=== PATIENT | female | born 1965 | race Caucasian/White ===

== ENCOUNTER 2019-01-07 12:21 | Emergency (ER) | payer MEDICARE, MEDICAID ==
[~2019-01-07] VITALS: Ht 149.9 cm; Wt 86.4 kg
[~2019-01-07 12:21] MED LIST: AMLO2.5T2 PO; BAC10T PO; DULO-31 PO; GABA-532 PO; GABA600T13 PO; IBUP-1984 PO; LISI-222 PO; TEG100T PO
[2019-01-07 13:10] VITALS: BP 155/84
--- NOTE | 2019-01-07 13:11 | NUR ---
DISCUSSED PLAN OF CARE WITH DR MARTÍNEZ: ZACHARIAH PATIENT MEETS SIRS CRITERIA: PATIENT BEING TREATED FOR UTI: SEEN AT [facility] A FEW DAYS AGO
[2019-01-07] MEDS ORDERED: acetaminophen 325mg tablet PO ONE (13:15)
--- NOTE | 2019-01-07 13:16 | NUR ---
MOTHER [phone] FRANCESCO
--- NOTE | 2019-01-07 13:17 | NUR ---
PHONED MOTHER AND LET HER KNOW THAT HER DAUGHTER IS HERE THE MOTHER ASKED WHY SHE IS NOT AT [facility]; I TOLD HER THAT I DONT KNOW WHY EMS BROUGHT HER HERE
--- NOTE | 2019-01-07 13:41 | NUR ---
BG [phone]
== END 2019-01-07 15:03 | disposition home or self-care (01) ==
LOC: ER 12:22
DX: M25.561 Pain in right knee (principal); M25.562 Pain in left knee; M25.551 Pain in right hip; M25.552 Pain in left hip; I10 Essential (primary) hypertension; Z88.8 Allergy status to other drugs, medicaments and biological substances; Z79.899 Other long term (current) drug therapy; W05.0XXA Fall from non-moving wheelchair, initial encounter; Y93.89 Activity, other specified; Y92.89 Other specified places as the place of occurrence of the external cause; Y99.8 Other external cause status
CPT/HCPCS: 73502; 73564; 82948; 99284

== ENCOUNTER 2019-03-10 11:22 | Day surgery (SDC) | payer MEDICARE, MEDICAID ==
[~2019-03-10] VITALS: Ht 124.5 cm; Wt 86.4 kg
[2019-03-10 11:45] VITALS: BP 134/75
[2019-03-10] MEDS ORDERED: MIDAZolam 5mg/5ml vial ONE (12:52)
[2019-03-10] MEDS ORDERED: fentaNYL/PF 50MCG/1 ML 2ML syringe ONE (12:52)
[2019-03-10 14:05] VITALS: BP 132/75
[2019-03-10 14:15] VITALS: BP 136/87
[2019-03-10 14:25] VITALS: BP 138/75
[2019-03-10 14:35] VITALS: BP 140/73
== END 2019-03-10 15:00 | disposition home or self-care (01) ==
LOC: GI LAB 11:22
PROVIDERS: ATTEND Internal Medicine Gastroenterology
DX: K63.5 Polyp of colon (principal); K64.8 Other hemorrhoids; E66.9 Obesity, unspecified
CPT/HCPCS: 44389; G0500; J2250; J3010; J7030; 44388; 50555; 88305; 99152; A4620

== ENCOUNTER 2020-07-07 09:30 | Day surgery (SDC) | payer MEDICARE, MEDICAID ==
[~2020-07-07 09:30] MED LIST changes: -AMLO2.5T2 PO; -LISI-222 PO
== END 2020-07-07 11:58 | disposition home or self-care (01) ==
LOC: WOUND CARE 09:30
PROVIDERS: ATTEND Nurse Practitioner
DX: S31.40XA Unspecified open wound of vagina and vulva, initial encounter (principal); L98.492 Non-pressure chronic ulcer of skin of other sites with fat layer exposed; K64.8 Other hemorrhoids; I10 Essential (primary) hypertension; E66.9 Obesity, unspecified; Z68.38 Body mass index [BMI] 38.0-38.9, adult; Z79.899 Other long term (current) drug therapy; W05.0XXA Fall from non-moving wheelchair, initial encounter; Y93.89 Activity, other specified; Y92.89 Other specified places as the place of occurrence of the external cause; Y99.8 Other external cause status
CPT/HCPCS: 97597

== ENCOUNTER 2020-08-31 12:15 | Outpatient (CLI) | payer MEDICARE, MEDICAID ==
[2020-08-31] MEDS ORDERED: LIDOcaine 2% 5ml jelly ONE (13:38)
== END 2020-08-31 23:59 | disposition home or self-care (01) ==
LOC: WOUND CARE 12:15 → EDSTATUS 13:00 → WOUND CARE 23:59
PROVIDERS: ATTEND Nurse Practitioner
DX: S31.40XD Unspecified open wound of vagina and vulva, subsequent encounter (principal); L98.492 Non-pressure chronic ulcer of skin of other sites with fat layer exposed; K64.8 Other hemorrhoids; I10 Essential (primary) hypertension; K21.9 Gastro-esophageal reflux disease without esophagitis; E66.9 Obesity, unspecified; R41.3 Other amnesia; H93.19 Tinnitus, unspecified ear; F41.9 Anxiety disorder, unspecified; F32.9 Major depressive disorder, single episode, unspecified; Z68.38 Body mass index [BMI] 38.0-38.9, adult; Z79.899 Other long term (current) drug therapy; W05.0XXD Fall from non-moving wheelchair, subsequent encounter
CPT/HCPCS: G0463

== ENCOUNTER 2020-09-13 12:53 | Outpatient (CLI) | payer MEDICARE, MEDICAID | END 2020-09-13 23:59 | disposition home or self-care (01) | LOC: WOUND CARE 12:53 | PROVIDERS: ATTEND Nurse Practitioner Family | DX: S31.40XD Unspecified open wound of vagina and vulva, subsequent encounter (principal); L98.492 Non-pressure chronic ulcer of skin of other sites with fat layer exposed; K64.8 Other hemorrhoids; I10 Essential (primary) hypertension; K21.9 Gastro-esophageal reflux disease without esophagitis; E66.9 Obesity, unspecified; Z68.38 Body mass index [BMI] 38.0-38.9, adult; Z79.899 Other long term (current) drug therapy; W05.0XXD Fall from non-moving wheelchair, subsequent encounter | CPT/HCPCS: G0463 ==

== ENCOUNTER 2020-09-20 12:33 | Outpatient (CLI) | payer MEDICARE, MEDICAID | END 2020-09-20 23:59 | disposition home or self-care (01) | LOC: WOUND CARE 12:33 | PROVIDERS: ATTEND Nurse Practitioner Family | DX: S31.40XD Unspecified open wound of vagina and vulva, subsequent encounter (principal); L98.492 Non-pressure chronic ulcer of skin of other sites with fat layer exposed; K64.8 Other hemorrhoids; I10 Essential (primary) hypertension; K21.9 Gastro-esophageal reflux disease without esophagitis; E66.9 Obesity, unspecified; Z68.38 Body mass index [BMI] 38.0-38.9, adult; Z79.899 Other long term (current) drug therapy; W05.0XXD Fall from non-moving wheelchair, subsequent encounter | CPT/HCPCS: 97597 ==

== ENCOUNTER 2020-10-13 13:05 | Outpatient (CLI) | payer MEDICARE, MEDICAID | END 2020-10-13 23:59 | disposition home or self-care (01) | LOC: WOUND CARE 13:05 | PROVIDERS: ATTEND Nurse Practitioner | DX: S31.40XD Unspecified open wound of vagina and vulva, subsequent encounter (principal); L98.492 Non-pressure chronic ulcer of skin of other sites with fat layer exposed; K64.8 Other hemorrhoids; I10 Essential (primary) hypertension; K21.9 Gastro-esophageal reflux disease without esophagitis; E66.9 Obesity, unspecified; F41.9 Anxiety disorder, unspecified; F32.9 Major depressive disorder, single episode, unspecified; Z68.38 Body mass index [BMI] 38.0-38.9, adult; Z79.899 Other long term (current) drug therapy; W05.0XXD Fall from non-moving wheelchair, subsequent encounter | CPT/HCPCS: G0463 ==